=== PATIENT | female | born 1965 | race African-American/Black ===

== ENCOUNTER 2017-05-01 18:02 | Emergency (ER) | payer MEDICAID ==
[~2017-05-01] VITALS: Ht 162.6 cm; Wt 54.4 kg
--- NOTE | 2017-05-01 18:02 | NUR ---
Patient BIBA BLS, transferred to bed 3. RN evaluating patient at bedside.
[2017-05-01 18:29] VITALS: BP 127/65
--- NOTE | 2017-05-01 18:38 | NUR ---
52/F BIBA C/O ALCOHOL INTOXICATION. SON STATES THEY CALLED 911 BECAUSE THEY ARE WORRIED ABOUT THEIR MOM DRINKING. AAOx4, PERRLA, BREATHING EVEN AND UNLABORED, VSS. PT DENIES PAIN AT THIS TIME. ERMD NOTIFIED OF PATIENT STATUS.
--- NOTE | 2017-05-01 19:01 | NUR ---
Pt report given to JOSEFINA TROTTER. Transfer of care at this time.
[2017-05-01] MEDS ORDERED: NACL 0.9% 1,000 ML IV ONE (19:20)
[2017-05-01 19:37] LABS: BASOPHILS # (AUTO) 0.3 K/uL (0.00-0.22); EOSINOPHILS # (AUTO) 0.1 K/uL (0-0.4); HEMATOCRIT 41.5 % (36-48); HEMOGLOBIN 13.3 g/dL (12.0-16.0); LYMPHOCYTES # (AUTO) 1.9 K/uL (2.5-16.5); MEAN CORPUSCULAR HEMOGLOBIN 30 pg (27-31); MEAN CORPUSCULAR HGB CONC 32 g/dL (33-37); MEAN CORPUSCULAR VOLUME 94 fL (80-94); MONOCYTES # (AUTO) 0.3 K/uL (0.8-1.0); NEUTROPHILS # (AUTO) 2.5 K/uL (1.8-7.7); PLATELET COUNT (AUTO) 265 K/uL (140-450); RED BLOOD CELL COUNT(AUTO) 4.39 MIL/uL (4.20-5.40); RED CELL DISTRIBUTION WIDTH 13.7 % (11.6-13.7); WHITE BLOOD COUNT (AUTO) 5.1 K/uL (4.8-10.8)
--- NOTE | 2017-05-01 19:40 | NUR ---
PT PULLED OUT IV; catheter intact and site benign. Applied folded 4x4 gauze and tape to stop bleeding. ER MD DR CALDERON AWARE
[2017-05-01 19:53] LABS: INR 1.2 (0.8-1.2); PROTHROMBIN TIME 12.1 secs (10.8-13.4)
--- NOTE | 2017-05-01 19:54 | NUR ---
PT REFUSED TO PROVIDE URINE SAMPLE. ER DR CALDERON AWARE.
[2017-05-01 19:55] LABS: ANION GAP 12.1 (8-16); CALCIUM 8.4 mg/dL (8.5-10.1); CARBON DIOXIDE 29.3 mmol/L (21-32); CHLORIDE 109 mmol/L (98-107); CREATININE 0.7 mg/dL (0.6-1.3); GFR ARICAN-AMERICAN 113 mL/min (>90); GFR NON ARICAN-AMERICAN 93 mL/min (>90); GLUCOSE 81 mg/dL (74-106); POTASSIUM 3.4 mmol/L (3.5-5.1); SODIUM SERUM 147 mmol/L (136-145); UREA NITROGEN, BLOOD 7 mg/dL (7-18)
[2017-05-01 20:01] LABS: ALANINE AMINOTRANSFERASE 22 U/L (14-59); ALBUMIN 3.9 g/dL (3.4-5.0); ALKALINE PHOSPHATASE 108 U/L (46-116); ASPARTATE AMINOTRANSFERASE 25 U/L (15-37); MAGNESIUM 1.9 mg/dL (1.8-2.4); SALICYLATE < 2.8 mg/dL (2.8-20.0); TOTAL BILIRUBIN 0.3 mg/dL (0.0-1.0); TOTAL PROTEIN, SERUM 8.4 g/dL (6.4-8.2)
[2017-05-01 20:02] LABS: ACETAMINOPHEN < 0.5 ug/ml (10-30)
[2017-05-01 20:03] LABS: ALCOHOL, BLOOD 443 mg/dL (<3)
[2017-05-01 20:05] VITALS: BP 122/62
--- NOTE | 2017-05-01 20:08 | NUR ---
Note melo in EDM - 05/01/17 at 2121 by PALMER Patient discharged with v/s stable. Written and verbal after care instructions given and explained. Patient alert, oriented and verbalized understanding of instructions. Ambulatory with steady gait. All questions addressed prior to discharge. ID band removed. Patient advised to follow up with PMD.NO Rx given. Patient educated on indication of medication including possible reaction and side effects. Opportunity to ask questions provided and answered.
== END 2017-05-01 20:35 | disposition home or self-care (01) ==
LOC: MED 18:02
DX: F10.129 Alcohol abuse with intoxication, unspecified (principal); F17.210 Nicotine dependence, cigarettes, uncomplicated; Z71.6 Tobacco abuse counseling
CPT/HCPCS: 36415; 80053; 83735; 84100; 85025; 85610; 99284; G0480; G0482; J7030